=== PATIENT | female | born 1935 | race Hispanic/Latino ===

== ENCOUNTER 2019-04-08 14:00 | Day surgery (SDC) | payer MEDICARE ==
--- NOTE | 2019-04-08 14:51 | Short Stay Summary ---
<KELBY MUNGUIA - Last Filed: 04/08/19 14:46> Short Stay Documentation Date of service: 04/08/19 Narrative H&P: This pt is an 83yo WF with ESRD on HD through a RIJ PC. This was placed by Dr Villagran at [facility] on 02/16/19. The catheter has functioned adequately until earlier this week. The venous port is reported as poorly functioning, and she presents now for elective replacement of the PC. - History Past Medical History: atrial fib, arthritis, cancer (breast ca), COPD, dialysis, ESRD, GERD, heart failure, hypertension, hyperlipidemia, migraines, stroke Past Surgical History: appendectomy, cholecystectomy, hysterectomy, mastectomy (with sentinel node bx on the left.), tonsillectomy, Other (multiple permacaths (including previous SCV Permacath placed by Dr Vásquez)) Social history: - Allergies and Medications Current Medications: Allergies fluoxetine Adverse Reaction (Unverified 06/15/15 09:25) Unknown iodine Adverse Reaction (Unverified 06/15/15 09:25) Unknown Penicillins Adverse Reaction (Unverified 06/15/15 09:25) Unknown trazodone Adverse Reaction (Unverified 06/15/15 09:25) Unknown Active Medications Sodium Chloride (Nacl 0.9% 500 Ml) 500 mls @ 50 mls/hr IV DIRECT JITENDRA - Physical exam General appearance: no acute distress HEENT: Atraumatic, PERRLA, Other (RIJ PC in place without erythema or drainage appreciated, Pt is [place]) Lungs: Normal air movement Heart: Regular rate Gastrointestinal: normal Extremities: no ischemia Neurological: Normal speech Short Stay Discharge Plan Follow up with: ANDREWS HURTADO DO [Primary Care Provider] - 7 Days <NELLA ANTONIO - Last Filed: 04/08/19 17:46> Short Stay Documentation - Allergies and Medications Current Medications: Allergies fluoxetine Adverse Reaction (Unverified 06/15/15 09:25) Unknown iodine Adverse Reaction (Unverified 06/15/15 09:25) Unknown Penicillins Adverse Reaction (Unverified 06/15/15 09:25) Unknown trazodone Adverse Reaction (Unverified 06/15/15 09:25) Unknown Home Medications Medication Instructions Recorded Confirmed Last Taken Type Albuterol Sulfate [Albuterol 0.63% 0.63 ml INHALATION BID 04/08/19 04/08/19 04/07/19 History NEBS] 1 puff Amiodarone HCl 200 mg PO DAILY 04/08/19 04/08/19 04/07/19 History 1 tab Apixaban [Eliquis] 2.5 mg PO DAILY 04/08/19 04/08/19 04/07/19 History 1 tab B Complex 11/Folic/C/Biot/Zinc 1 each PO DAILY 04/08/19 04/08/19 04/05/19 History [Dialyvite with Zinc Tablet] 1 tab HYDROcodone/APAP 10-325 [[place] 10 mg PO PRN 04/08/19 04/08/19 04/05/19 History 10-325 mg TAB] 1 tab Meclizine [Antivert] 25 mg PO TID PRN 04/08/19 04/08/19 04/05/19 History 1 tab Metoprolol [Lopressor TAB] 25 mg PO DAILY 04/08/19 04/08/19 04/07/19 History 1 tab [place]-3 Fatty Acids/Fish Oil [Fish 1 each PO DAILY 04/08/19 04/08/19 04/07/19 History Oil] 1tab Omeprazole 40 mg PO DAILY 04/08/19 04/08/19 04/07/19 History 1 tab Prasterone (Dhea)/Calcium Carb 1 each PO DAILY 04/08/19 04/08/19 04/05/19 History [Dhea 50 mg Tablet] 1 tab Promethazine [Phenergan] 25 mg PO Q8HR PRN 04/08/19 04/08/19 04/05/19 History 1 tab Active Medications Sodium Chloride (Nacl 0.9% 500 Ml) 500 mls @ 50 mls/hr IV DIRECT JITENDRA Last Admin: 04/08/19 17:10 Dose: 50 mls Documented by: Vancomycin HCl (Vancomycin/Ns 1 Gm/250 Ml) 1 gm in 250 mls @ 167.007 mls/hr IV PREOP NR; Protocol Stop: 04/08/19 20:00 Last Admin: 04/08/19 17:10 Dose: 166.7 mls Documented by: - Brief post op/procedure progress note Date of procedure: 04/08/19 Pre-op diagnosis: malfunction of permacath, right IJV Procedure: complete exchange of permacath, EBENEZER, same venous access site, flouro Anesthesia: other (moderate sedation [id number]) Findings: PC in good position, ready for use Surgeon: NELLA ANTONIO Estimated blood loss: minimal Pathology: none Specimen disposition: discarded Condition: stable
[2019-04-08] MEDS ORDERED: NACL 0.9% 500 ML 500 ML IV SCH (15:00)
[2019-04-08] MEDS ORDERED: VERSED ONE (16:49)
[2019-04-08] MEDS ORDERED: SUBLIMAZE ONE (16:49)
[2019-04-08] MEDS ORDERED: NACL 0.9% 250ML 0 ML ONE (16:50)
[2019-04-08] MEDS ORDERED: HEPARIN/NS 5000 UNIT/500ML(CATH LAB) 500 ML IR ONE (16:50)
[2019-04-08] MEDS ORDERED: XYLOCAINE 1%/ EPI 1:100,000 INFILTRATI ONE (16:50)
[2019-04-08] MEDS ORDERED: VANCOMYCIN/NS 1 GM/250 ML 1 GM/250 ML BAG IV NR (17:00)
[2019-04-08] MEDS: HEPARIN 10,000 UNITS/10 ML ONE ×2 (17:39→17:40)
[2019-04-08] MEDS ORDERED: NORCO 5/325 PO ONE (18:03)
[2019-04-08] MEDS ORDERED: NORCO 5/325 ONE (18:07)
--- NOTE | 2019-04-08 18:59 | Operative Report ---
Operative Report Operative Report: Date of procedure: 04/08/2019 Pre-operative diagnosis: Malfunction of hemodialysis catheter, end-stage renal disease Post-operative diagnosis: Same Procedure name(s): Complete removal and replacement of tunneled gently inserted hemodialysis catheters using same venous access site, fluoroscopy Surgeon: Dalton Miramontes MD [employer] Leader: None Anesthesia: Moderate sedation on [id number] total moderate sedation time 19 minutes EBL: Normal Specimen(s): Catheter discarded Complications: None Findings: Catheter in good position ready for use Procedure: [Patient in the supine position with head rotated to the left the right anterior neck and chest were prepped and draped using standard sterile technique. The skin overlying the catheter exit site was palpated at the base of the neck and was anesthetized. The catheter cuff was identified and retracted using a combination of blunt and sharp dissection and the scar tissue holding the catheter in the subcutaneous position was released. I then accessed both limbs of the catheter with stiff guidewires and advanced them fluoroscopically through the right atrium into the inferior vena cava. The old catheter was removed maintaining the wire access to the venous lumen. A 23 cm Bard glidepath catheter was inserted retrograde through the tunnel over the guidewires and seated within the right atrium. Catheter length and configuration was adjusted fluoroscopically. Both limbs were then aspirated flushed and primed using 1000 units of heparin/cc to the specified priming amounts per limb. Sterile caps were applied. A cerclage suture of 4-0 Monocryl was used at the exit site. Any hemorrhage or catheter migration catheter was anchored to the skin using nylon suture. Biopatch was applied and it sterile Tegaderm was placed. It is ready for use. The patient returned to the outpatient area in stable condition having tolerated the procedure well.]
[2019-04-08 19:01] VITALS: BP 119/77
== END 2019-04-08 19:42 | disposition home or self-care (01) ==
LOC: CATHLABREC 14:00
PROVIDERS: ATTEND Surgery Vascular Surgery
DX: T82.898A Other specified complication of vascular prosthetic devices, implants and grafts, initial encounter (principal); I13.2 Hypertensive heart and chronic kidney disease with heart failure and with stage 5 chronic kidney disease, or end stage renal disease; N18.6 End stage renal disease; I50.9 Heart failure, unspecified; I48.91 Unspecified atrial fibrillation; J44.9 Chronic obstructive pulmonary disease, unspecified; M19.90 Unspecified osteoarthritis, unspecified site; Z88.0 Allergy status to penicillin; Z91.041 Radiographic dye allergy status; Z79.899 Other long term (current) drug therapy; Z98.49 Cataract extraction status, unspecified eye; Z98.890 Other specified postprocedural states; Z90.49 Acquired absence of other specified parts of digestive tract; Z85.3 Personal history of malignant neoplasm of breast; Z90.12 Acquired absence of left breast and nipple; F32.9 Major depressive disorder, single episode, unspecified; Z83.3 Family history of diabetes mellitus; Z84.1 Family history of disorders of kidney and ureter; Z85.89 Personal history of malignant neoplasm of other organs and systems; Z86.2 Personal history of diseases of the blood and blood-forming organs and certain disorders involving the immune mechanism; Z88.8 Allergy status to other drugs, medicaments and biological substances; Z86.73 Personal history of transient ischemic attack (TIA), and cerebral infarction without residual deficits; Y83.8 Other surgical procedures as the cause of abnormal reaction of the patient, or of later complication, without mention of misadventure at the time of the procedure; Y92.89 Other specified places as the place of occurrence of the external cause
CPT/HCPCS: 36415; 36581; 77001; 84132; 99156; C1750; C1769; J1644; J2250; J3010; J3370; J7040; J7050